=== PATIENT | female | born 1960 | race African-American/Black ===

== ENCOUNTER 2023-08-14 11:10 | Emergency (ER) | payer BC, MEDICAID ==
[~2023-08-14] VITALS: Ht 162.6 cm; Wt 98.0 kg
[2023-08-14 11:36] VITALS: O2SAT 99
[2023-08-14 12:57] LABS: HEMATOCRIT. 37.9 % (36.0-48.0); HEMOGLOBIN. 12.8 g/dL (12.0-16.0); MEAN CORPUSCULAR HGB CONC 33.6 g/dL (31.0-37.0); MEAN CORPUSCULAR VOLUME 83.3 fL (81.0-99.0); MEAN PLATELET VOLUME 8.7 fl (7.4-10.4); PLATELET 255 x1000/uL (130-400); RED BLOOD CELL COUNT 4.55 mill/uL (4.2-5.4); RED CELL DISTRIBUTION WIDTH 13.8 % (11.6-14.6)
[2023-08-14 13:07] LABS: DIFFERENTIAL COMMENT 1
[2023-08-14 13:29] LABS: ALANINE AMINOTRANSFERASE 14 IU/L (10-49); ALBUMIN 4.2 g/dL (3.2-4.8); ASPARTATE AMINOTRANSFERASE 18 IU/L (<34); BILIRUBIN TOTAL 0.9 mg/dL (0.1-1.0); CALCIUM 9.4 mg/dL (8.7-10.4); CARBON DIOXIDE 29 mEq/L (21-32); CHLORIDE 105 mEq/L (98-107); CREATININE 0.7 mg/dL (0.6-1.0); GLUCOSE 101 mg/dL (70-105); POTASSIUM 3.4 mEq/L (3.5-5.1); PROTEIN TOTAL 7.2 g/dL (6.0-8.3); SODIUM 142 mEq/L (136-145); UREA NITROGEN BLOOD 10 mg/dL (9-23)
[2023-08-14 15:15] LABS: PLATELET ESTIMATE NORMAL
[2023-08-14 16:22] LABS: CLARITY URINE CLOUDY (CLEAR); COLOR URINE YELLOW (YELLOW); GLUCOSE URINE NEGATIVE (NEGATIVE); KETONES URINE 1+ (NEGATIVE); LEUKOCYTE ESTERASE URINE 1+ (NEGATIVE); NITRITE URINE NEGATIVE (NEGATIVE); OCCULT BLOOD URINE 1+ (NEGATIVE); PH URINE 5.5 (4.5-8.0); PROTEIN URINE TRACE (NEGATIVE); SPECIFIC GRAVITY URINE 1.024 (1.005-1.030); UROBILINOGEN URINE 0.2 E.U./dL (0.2-1.0)
[2023-08-14 16:49] LABS: BACTERIA URINE 3+; SQUAMOUS EPITHELIAL CELL URINE 2+ /lpf (RARE/1+)
[2023-08-14] MEDS ORDERED: CEFTRIAXONE 1GM PREMIX 50 ML IV ONE (18:15)
[2023-08-14] MEDS ORDERED: ONDANSETRON HCL 4MG/2ML INJ IV ONE (18:15)
[2023-08-14] MEDS ORDERED: SODIUM CHLORIDE 0.9% 1,000 ML IV ONE ×2 (18:45→21:45)
[2023-08-14 21:29] LABS: LACTIC ACID 3.2 mmol/L (0.4-2.0)
[2023-08-15] VITALS: BP 133/87; PULSE 98; RESP 18; TEMP 98.3
== END 2023-08-15 00:20 | disposition short-term general hospital (02) ==
LOC: ER 11:10
DX: A41.9 Sepsis, unspecified organism (principal); E86.0 Dehydration; E87.20 Acidosis, unspecified; I10 Essential (primary) hypertension
CPT/HCPCS: 80053; 81003; 83605; 84443; 85025; 87040; 36415; 71045; 74176; 96365; 96366; 99291; J0696; J2405; J7030; Z7610 ×2